=== PATIENT | female | born 1985 | race Caucasian/White ===

== ENCOUNTER → 2016-11-19 | Outpatient (CLI) | payer OTHER ==
[~2016-11-19] MED LIST: /ONDA4TA OR; ACET500C OR; ADVI200T26 PO; ALKATAB PO; AMRI15CA PO; BACL10TA2 OR; BACL10TA2 PO; GABA-283 PO; IBUP200T2 PO; IBUP800T OR; LEVO112T PO; LEVO50TA5 PO; LEVO75TA4 PO; META800T82 PO; MULTIVIT OR; OMEP40CA2 PO; ROBA750T4 PO; TIZA4CAP PO; VALI2TAB PO; VOLT1GEL2 TD; [UNRECOGNIZED DRUG - OTHER] OR; [UNRECOGNIZED DRUG - REMARK] PO; advil PO
--- NOTE | 2016-11-23 01:52 | ECWPNPC ---
PATIENT NAME: RICH NEGRON : 1985 GENDER: FEMALE VISIT DATE: 11/19/2016 DISCHARGE DATE: 11/19/16 1020 VISIT LOCKED DATE TIME: PHYSICIAN: IVETH URIAS RESOURCE: IVETH URIAS REASON FOR APPOINTMENT 1. BACK HISTORY OF PRESENT ILLNESS HISTORY OF PRESENT ILLNESS: PAIN THE PATIENT DESCRIBES THE PAIN... FALL RISK SCREENING: SCREENING :NO FALLS IN THE PAST YEAR TODAY'S VISIT: NOTES: RATES PAIN LEVEL TODAY 5/10. REPORTS PAIN IS CONSTANT, ACHING TENDER, THROBBONG AND SORE. PAIN IS CENTERED ACROSS LOSS BACK. IS ALSO HAVING PAIN IN RIGHT ELBBOW - HAS RECENTLY SEEN DR ROSE.HE DID INJECTIONS IN LOW BACK AND IN BACK OF NECK RIGHT SIDE. THIS HELPED ONLY FOR ABOUT AN OUR. . CURRENT MEDICATIONS TAKING LEVOTHYROXINE SODIUM 100 MCG TABLET 1 TABLET ORALLY ONCE A DAY TAKING MULTI FOR HER TABLET 1 ORALLY DAILY TAKING IBUPROFEN 800 MG TABLET 1 TABLET ORALLY NEEDED TAKING METHOCARBAMOL 750 MG TABLET 1 TABLET ORALLY EVERY 6 HRS TAKING CYMBALTA 30 MG CAPSULE DELAYED RELEASE PARTICLES 2 CAPSULE ORALLY DAILY TAKING NEXPLANON 68 MG IMPLANT DIRECTED SUBCUTANEOUS USE FOR THREE YEARS TAKING OMEPRAZOLE 40 MG CAPSULE DELAYED RELEASE 1 TABLET DAILY NOT-TAKING OMEPRAZOLE 20 MG TABLET DELAYED RELEASE 2 TABLETS ORALLY ONCE A DAY NEEDED NOT-TAKING FLUCONAZOLE 150 MG TABLET 1 TABLET ORALLY DAILY NOT-TAKING DIFLUCAN 150 MG TABLET 1 TABLET ORALLY ONCE A DAY MEDICATION LIST REVIEWED AND RECONCILED WITH THE PATIENT PAST MEDICAL HISTORY GERD HYPOTHYROID MORBID OBESITY BACK PAIN ALLERGIES AMOXICILLIN CODEINE PHOSPHATE SOCIAL HISTORY GENERAL: PAIN CLINIC PFS, CLERGY, PUBLIC HEALTH REFERRALS CLERGY REFERRAL NEEDED?NO WAS THE PROVIDER NOTIFIED OF ANY PERTINENT INFO?NO PFS REFERRAL NEEDED?NO PUBLIC HEALTH REFERRAL NEEDED?NO PATIENT: ____. REVIEW OF SYSTEMS CONSTITUTIONAL: ANY CHANGE IN YOUR MEDICAL CONDITION? NO . CHILLS NO . FEVER NO . INFECTION: DO YOU HAVE NEW INFECTIONS? NO . DO YOU HAVE HISTORY OF MRSA? NO . MUSCULOSKELETAL: ANY NEW PATTERNS OF PAIN OR NUMBNESS? YES PT REPORTS NEW PAIN IN RIGHT ELBOW, DOES NOT RECALL ANY INJURY. STARTED ABOUT A WEEK AGO. . GASTROENTEROLOGY: ANY NEW CHANGE IN BOWEL CONTROL? NO . GENITOURINARY: ANY NEW CHANGE IN BLADDER CONTROL? NO . IS THERE A CHANCE YOU COULD BE ? NO . HEMATOLOGY/LYMPH: DO YOU TAKE ANY BLOOD THINNERS? (FOR EXAMPLE- COUMADIN, PLAVIX, AGGRENOX, PLATEL, PRADAXA, OR XARELTO) NO . WHEN WAS YOUR LAST DOSE? DATE: TIME: . NEUROLOGY: HAVE YOU FALLEN IN THE PAST 6 MONTHS? YES PT REPORTS SHE SLIPPED ON ICE ON STEPS AND FELL, HIT LOWER BACK. NO ED VISIT. . ANY NEW EXTREMITY NUMBNESS OR WEAKNESS? NO . CARDIOLOGY: DO YOU HAVE A PACEMAKER OR DEFIBRILLATOR? NO . RESPIRATORY: HAVE YOU BEEN SICK IN THE PAST WEEK? YES PT REPORTS NASAL CONGESTION, COUGH PRODUCTIVE OF LOOSE MUCOUS. TEMP TODAY IS 99.3. REPORTS COUGH IS RESOLVING . FEVER NO . FLU LIKE SYMPTOMS? NO . COUGH NO . INTEGUMENTARY: DO YOU HAVE ANY RASHES OR OPEN SORES? NO . ALLERGIC/IMMUNO: ARE YOU ALLERGIC TO SHELLFISH OR IV DYE? NO . ANY NEW ALLERGIES? NO . PSYCHIATRIC: DO YOU HAVE THOUGHTS OF HURTING YOURSELF OR SOMEONE ELSE? NO . ARE YOU ABUSED, NEGLECTED, OR IN AN UNSAFE ENVIRONMENT? NO . ENDOCRINOLOGY: ARE YOU DIABETIC? NO . OTHER: DO YOU NEED ANY PRESCRIPTIONS? YES . IF YES, PLEASE LIST: ____METHOCARBAMOL, CYMBALTA, IBUPROFEN . ANY NEW PROBLEMS WITH YOUR MEDICATIONS? NO . WHEN DID YOU LAST EAT? ____ . WHEN DID YOU LAST DRINK? ____ . WHAT DID YOU LAST DRINK? ____ . NAME OF PERSON DRIVING YOU HOME? ____ . DO YOU HAVE ANY OTHER QUESTIONS OR CONCERNS NO . PSYCHOLOGY: DEPRESSION HAS RECENTLY STARTED COUNSELING IN THE [place]. . REVIEWED BY: PROVIDER: IVETH SMITH . VITAL SIGNS WT 264 LBS, HT 68 IN, BMI 40.14 INDEX, BP 120/74 MM HG, HR 74 /MIN, RR 18 /MIN, TEMP 99.3 F, OXYGEN SAT % 99%, SAFE IN ENV? (Y/N) YES, REVIEWED BY: USAMA. EXAMINATION GENERAL EXAMINATION: PSYCHALERT , ORIENTED X 3 , APPROPRIATE MOOD AND AFFECT . LUNGS:CLEAR TO AUSCULTATION BILATERALLY. HEART:HEART RATE REGULAR. MUSCULOSKELETAL:EXQUISITE TENDERNESS OVER LEFT SIJ. TENDER ACROSS LSA. ABLE TO RISE TO STANDING POSITION. GAIT ANTALGIC. HEAD HELD IN A HEAD FORWARD POSITION. ASSESSMENTS LUMBAR DISC DISPLACEMENT WITHOUT MYELOPATHY - M51.26 (PRIMARY) MYALGIA - M79.1 FIBROMYALGIA - M79.7 TREATMENT LUMBAR DISC DISPLACEMENT WITHOUT MYELOPATHY REFILL CYMBALTA CAPSULE DELAYED RELEASE PARTICLES, 30 MG, 2 CAPSULE, ORALLY, DAILY, 30 DAY(S), 60 CAPSULE, REFILLS 5 REFILL IBUPROFEN TABLET, 800 MG, 1 TABLET, ORALLY, Q 8 HOURS WITH FOOD, 30 DAY(S), 90, REFILLS 2 REFILL METHOCARBAMOL TABLET, 750 MG, 1 TABLET, ORALLY, EVERY 6 HRS, 30 DAY(S), 120, REFILLS 3 NOTES: CONTINUE COUNSELING. CONTINUE WALKING, ACTIVITY. PROCEDURE CODES FA211 ESTABILISHED PATIENT [facility] CHARGE DISPOSITION & COMMUNICATION FOLLOW UP 3 MONTHS ELECTRONICALLY SIGNED BY PEREZ LARKIN ON 11/19/2016 AT 10:35 AM EDT DISCLAIMER : THIS IS A VISIT SUMMARY EXTRACTED FROM THE [employer] CHART. IT IS NOT A COPY OF THE [employer] PROGRESS NOTE. MTDD
== END ==
LOC: M PAIN 09:40
PROVIDERS: ATTEND Nurse Practitioner Family
DX: Z09 Encounter for follow-up examination after completed treatment for conditions other than malignant neoplasm (principal); G89.29 Other chronic pain; M51.26 Other intervertebral disc displacement, lumbar region; M79.7 Fibromyalgia; K21.9 Gastro-esophageal reflux disease without esophagitis; E03.9 Hypothyroidism, unspecified; E66.9 Obesity, unspecified; Z68.41 Body mass index [BMI] 40.0-44.9, adult; Z88.1 Allergy status to other antibiotic agents; Z88.5 Allergy status to narcotic agent; Z79.1 Long term (current) use of non-steroidal anti-inflammatories (NSAID); Z79.899 Other long term (current) drug therapy

== ENCOUNTER → 2016-12-31 | Outpatient (CLI) | payer OTHER ==
--- NOTE | 2016-12-31 13:07 | REP ---
MRI LUMBAR SPINE WITHOUT CONTRAST: 12/31/2016 COMPARISON: 11/07/2015 MRI, 03/17/2015 CT, x-ray 12/27/2015. CLINICAL HISTORY: Spondylosis, back pain. TECHNIQUE: Sagittal T1, T2, and STIR images with axial T1 and T2 sequences. FINDINGS: Sagittal images show normal lordosis. There is loss of disc water signal at L3-4 through L5-S1. Disc space height slightly narrowed at L5-S1. Less narrowing at L3-4 and L4-5. The L2-3 level and L1-2 maintain height and water signal. Vertebral body heights and marrow signal are normal throughout. T11-12, T12-L1, L1-2, and L2-3 levels show no significant disc bulge or herniation and no spinal or foraminal stenosis. At L3-4, there is a mild diffuse disc bulge without visible protrusion. Central canal shows adequate cross-sectional area with the AP canal diameter just under 10 mm. There is no nerve root compression for the L3 roots in the foramen on either side. At L4-5, there is a mild broad-based disc bulge flattening ventral thecal sac with some facet and ligamentum hypertrophy. The L4 nerve roots exit the foramina in a normal fashion. At L5-S1, minimal disc bulge with small central disc protrusion without significant spinal or foraminal stenosis. Some facet hypertrophy noted. IMPRESSION: 1. Multilevel degenerative disc change with small disc bulge at L4-5 and L5-S1, less at L3-4. No significant central canal stenosis or foraminal encroachment either side. No nerve root compression within the foramina. 2. No compression deformity or signal abnormality in the vertebral bodies. Signed by Jarek Goldman MD 12/31/2016 01:38 P
== END ==
LOC: M RAD 11:04
PROVIDERS: ATTEND Neurological Surgery
DX: M54.5 Low back pain (principal)

== ENCOUNTER → 2017-02-12 | Outpatient (CLI) | payer OTHER ==
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
== END ==
LOC: M PAIN 10:00
PROVIDERS: ATTEND Nurse Practitioner Family
DX: G89.29 Other chronic pain (principal); M51.26 Other intervertebral disc displacement, lumbar region; M79.7 Fibromyalgia; R51 Headache; K21.9 Gastro-esophageal reflux disease without esophagitis; E03.9 Hypothyroidism, unspecified; E66.9 Obesity, unspecified; Z68.41 Body mass index [BMI] 40.0-44.9, adult; Z79.1 Long term (current) use of non-steroidal anti-inflammatories (NSAID); Z79.899 Other long term (current) drug therapy

== ENCOUNTER → 2017-04-04 | Outpatient (CLI) | payer OTHER ==
--- NOTE | 2017-04-04 13:37 | REP ---
MRI brain without contrast: History: Headaches. . Comparison study: Comparison brain MRI study is from February 16, 2010. Technique: Axial and sagittal imaging planes are utilized for T1 and T2-weighted scans. Sequences include spin-echo, fast spin echo, FLAIR, and diffusion weighted sequences. MRI findings: No bony calvarial lesion is seen. Craniocervical junction and upper cervical cord are normal in appearance. There is no MR evidence of significant paranasal sinus disease. No intraorbital abnormality is seen. The lateral, third, and fourth ventricles are normal in size and position. Martinez-white differentiation pattern is intact above and below the tentorium. There is no evidence of intracranial hemorrhage. No mass, infarction, extra-axial fluid collection or midline shift is seen. No abnormal white matter lesion is seen. Impression: Negative noncontrast brain MRI study. Signed by Sreedhar López MD 04/04/2017 01:29 P
== END ==
LOC: M RAD 11:16
PROVIDERS: ATTEND Nurse Practitioner Family
DX: R51 Headache (principal)
CPT/HCPCS: 70553; A9576

== ENCOUNTER → 2017-05-01 | Outpatient (CLI) | payer OTHER ==
--- NOTE | 2017-05-02 00:08 | ECWPNPC ---
PATIENT NAME: RICH NEGRON : 1985 GENDER: FEMALE VISIT DATE: 05/01/2017 DISCHARGE DATE: 05/01/17 1011 VISIT LOCKED DATE TIME: PHYSICIAN: IVETH URIAS RESOURCE: IVETH URIAS REASON FOR APPOINTMENT 1. BACK HISTORY OF PRESENT ILLNESS FALL RISK SCREENING: SCREENING :NO FALLS IN THE PAST YEAR PAIN SCREENING: PATIENT HAS A COMPLAINT OF ACUTE OR CHRONIC PAIN :YES TODAY'S VISIT: NOTES: RATES PAIN TODAY 01/26. RATES PAIN TODAY CONSTANT, ACHING AND SORE. HAS JUST STARTED WORK AT THE GYM. HAD LIGHT HEADEDNESS, FELT LIKE WAS WOBBLY. NOTES PARTICULAR PROBLEM WITH LIGHTHEADNESS WITH TURNING HER HEAD. REALLY LIKED THE MASSAGE CHAIR. IS STILL HAVING LEFT SIDED HEADACHE - IS INTERMITTANT BUT AT LEAST 3 TIMES A WEEK.. CURRENT MEDICATIONS TAKING LEVOTHYROXINE SODIUM 125 MCG TABLET 1 TABLET ORALLY ONCE A DAY TAKING MULTI FOR HER TABLET 1 ORALLY DAILY TAKING NEXPLANON 68 MG IMPLANT DIRECTED SUBCUTANEOUS USE FOR THREE YEARS TAKING OMEPRAZOLE 40 MG CAPSULE DELAYED RELEASE 1 TABLET DAILY TAKING IBUPROFEN 800 MG TABLET 1 TABLET ORALLY Q 8 HOURS WITH FOOD TAKING METHOCARBAMOL 750 MG TABLET 1 TABLET ORALLY EVERY 6 HRS TAKING VENLAFAXINE HCL ER 75 MG CAPSULE EXTENDED RELEASE 24 HOUR 1 CAPSULE WITH FOOD ORALLY ONCE A DAY NOT-TAKING CYMBALTA 30 MG CAPSULE DELAYED RELEASE PARTICLES 2 CAPSULE ORALLY DAILY NOT-TAKING TOPAMAX 50 MG TABLET 1 TABLET ORALLY TWICE A DAY NOT-TAKING OMEPRAZOLE 20 MG TABLET DELAYED RELEASE 2 TABLETS ORALLY ONCE A DAY NEEDED NOT-TAKING FLUCONAZOLE 150 MG TABLET 1 TABLET ORALLY DAILY NOT-TAKING DIFLUCAN 150 MG TABLET 1 TABLET ORALLY ONCE A DAY MEDICATION LIST REVIEWED AND RECONCILED WITH THE PATIENT PAST MEDICAL HISTORY GERD HYPOTHYROID MORBID OBESITY BACK PAIN ALLERGIES AMOXICILLIN: HIVES: ALLERGY CODEINE PHOSPHATE: NAUSEA/VOMITING: SIDE EFFECTS CLONAZEPAM: HIVES: SIDE EFFECTS AMITRIPTYLINE HCL: NAUSEA/VOMITING: SIDE EFFECTS BUPROPION HCL: NAUSEA/VOMITING: SIDE EFFECTS SURGICAL HISTORY NO SURGICAL HISTORY DOCUMENTED. FAMILY HISTORY FATHER: ALIVE 51 YRS MOTHER: ALIVE 50 YRS NON-CONTRIBUTORY SOCIAL HISTORY GENERAL: TOBACCO USE ARE YOU A:NONSMOKER CAFFEINE CAFFEINE USE?YES HOW OFTEN AND HOW MUCH? 2 CUPS PER DAY LEARNING BARRIERS / SPECIAL NEEDS BARRIERS TO LEARNING?NO READINESS TO LEARN?YES LEARNING PREFERENCES?NO PAIN CLINIC PFS, CLERGY, PUBLIC HEALTH REFERRALS PFS REFERRAL NEEDED?NO CLERGY REFERRAL NEEDED?NO PUBLIC HEALTH REFERRAL NEEDED?NO WAS THE PROVIDER NOTIFIED OF ANY PERTINENT INFO?YES HAS THE PATIENT BEEN EDUCATED REGARDING HIS/HER PLAN OF CARE?YES HAS THE PATIENT BEEN EDUCATED REGARDING PAIN, THE RISK FOR PAIN, THE IMPORTANCE OF EFFECTIVE PAIN MANAGEMENT, AND THE PAIN ASSESSMENT PROCESS?YES REVIEWED BY: JULIANNE. PATIENT: ____. HOSPITALIZATION/MAJOR DIAGNOSTIC PROCEDURE NO HOSPITALIZATION HISTORY. REVIEW OF SYSTEMS REVIEWED BY: PROVIDER: IVETH SMITH . CONSTITUTIONAL: ANY CHANGE IN YOUR MEDICAL CONDITION? NO . CHILLS NO . FEVER NO . INFECTION: DO YOU HAVE NEW INFECTIONS? NO . DO YOU HAVE HISTORY OF MRSA? NO . MUSCULOSKELETAL: ANY NEW PATTERNS OF PAIN OR NUMBNESS? YES, PT STATES THAT SHE HAS A CHOKING SENSATION IN THROAT INTERMITTENTLY, PT STATES THAT SHE IS HAVING ISSUES WITH THYROID AND GOING THROUGH EVALUATIONS WITH PCP. . SYTEMIC LUPUS NO . GASTROENTEROLOGY: ANY NEW CHANGE IN BOWEL CONTROL? NO . BARRETTS ESOPHAGUS NO . CIRRHOSIS NO . HEPATITIS NO . LIVER FAILURE NO . ACID REFLUX NO . UNEXPLAINED WEIGHT LOSS NO . GENITOURINARY: ANY NEW CHANGE IN BLADDER CONTROL? NO . IS THERE A CHANCE YOU COULD BE ? NO . HEMATOLOGY/LYMPH: DO YOU TAKE ANY BLOOD THINNERS? (FOR EXAMPLE- COUMADIN, PLAVIX, AGGRENOX, PLATEL, PRADAXA, OR XARELTO) NO . WHEN WAS YOUR LAST DOSE? DATE: TIME: . LOW PLATELET COUNT NO . SICKLE CELL DISEASE NO . VON WILLIEBRANDS NO . FACTOR V LEIDEN NO . THALLASEMIA NO . ANEMIA NO . EASY BRUISING NO . NEUROLOGY: MYAASTHENIA GRAVIS NO . BALANCE DIFFICULTY WITH OCCASIONAL LIGHTHEADEDNESS. . MEMORY DISTURBANCE FREQ MEMORY LAPSES, DISORIENTATION . CARDIOLOGY: DO YOU HAVE A PACEMAKER OR DEFIBRILLATOR? NO . ANGINA NO . HEART ATTACK NO . HEART SURGERY NO . CONGESTIVE HEART FAILURE/FLUID OVERLOAD NO . CHEST PAIN NO . HIGH BLOOD PRESSURE NO . IRREGULAR HEART BEAT NO . RESPIRATORY: HAVE YOU BEEN SICK IN THE PAST WEEK? NO . FEVER NO . FLU LIKE SYMPTOMS? NO . CPAP NO . BYPAP NO . ASTHMA NO . EMPHYSEMA NO . CHRONIC LUNG DISEASES NO . SHORTNESS OF BREATH ON EXERTION NO . COUGH NO . SNORING NO . INTEGUMENTARY: DO YOU HAVE ANY RASHES OR OPEN SORES? NO . ALLERGIC/IMMUNO: ARE YOU ALLERGIC TO SHELLFISH OR IV DYE? NO . ANY NEW ALLERGIES? NO . PSYCHIATRIC: DO YOU HAVE THOUGHTS OF HURTING YOURSELF OR SOMEONE ELSE? NO . ARE YOU ABUSED, NEGLECTED, OR IN AN UNSAFE ENVIRONMENT? NO . ENDOCRINOLOGY: ARE YOU DIABETIC? NO . THYROID DISORDER NO . OTHER: DO YOU NEED ANY PRESCRIPTIONS? YES, PT STATES THAT SHE WOULD LIKE SOMETHING DIFFERENT FOR PAIN CONTROL . IF YES, PLEASE LIST: ____ . ANY NEW PROBLEMS WITH YOUR MEDICATIONS? NO . WHEN DID YOU LAST EAT? ____ . WHEN DID YOU LAST DRINK? ____ . WHAT DID YOU LAST DRINK? ____ . NAME OF PERSON DRIVING YOU HOME? ____ . PSYCHOLOGY: ARE YOU RECEIVING COUNSELING? CURRENTLY IN COUNSELING AND IS RECEIVING MEDICATION . VITAL SIGNS WT 271.2 LBS, HT 68 IN, BMI 41.23 INDEX, BP 135/73 MM HG, HR 81 /MIN, RR 16 /MIN, TEMP 97.5 F, OXYGEN SAT % 100%, NA INITIALS AW 0913. EXAMINATION GENERAL EXAMINATION: HEENT:BILATERAL THYROMEGLY. LUNGS:CLEAR TO AUSCULTATION BILATERALLY. HEART:HEART RATE REGULAR, NORMAL S1S2, NO MURMURS, CLICK OR RUBS. MUSCULOSKELETAL:POINT TENDERNESS OVER RIGHT SIJ. SLOW TO RISE TO STANDING POSITION. HAS DIFFICULTY RISING TO FULL UPRIGHT POSITION. NECK ROTATION TO LEFT CAUSES TIGHTNESS OVER LEFT ANABAPTISM, TRIGGER POINTS AND TIGHT FIBROUS BANDS OVER CERVICAL PARASPINOUS MUSCLES AND ACROSS THE TRAPEZIUS BILATERALLY. GAIT ANTALGIC WITH RIGHT LEG LIMP. NEUROLOGIC EXAM:CN'S II-XII GROSSLY INTACT. 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 CONTINUE WITH EVAL FOR THYROID DYSFUNCTION. CLINICAL NOTES: DISCUSSED OPTIONS FOR TREATMENT. INTERVENTIONAL TREATMENT S HAVE NOT BEEN VERY EFFECTIVE AND HAVE CAUSED INCREASED PAIN. SHE IS VERY CONCERNED ABOUT THE NUMBNESS IN HER LEGS, THE BALANCE ISSUES AND FALLS, MEMORY ISSUES AND FATIGUE. SHE DOES NOT TOLERATE MEDICATIONS A RULE AND DOESN OT WANT PAIN MEDICATIONS THEY MAKE HER SO SLEEPY SHE CAN NOT FUNCTION. SHE PREFERS IBUPROFEN AND IS CAREFUL WITH HER INTAKE OF THIS MED. REFERRAL TO:[facility] REASON:PLEASE EVAL FOR MS /DEMYLINATING ILLNESS. HAS PARESTHESIA/DYSESTHESIA, EXTREME DIFF WITH BALANCE, FREQ HEADACHES/FREQ URINATION PROCEDURE CODES FA211 ESTABILISHED PATIENT [facility] FACILITY CHARGE DISPOSITION & COMMUNICATION FOLLOW UP 2-3 MONTHS (REASON: BACK PAIN) ELECTRONICALLY SIGNED BY PEREZ LARKIN ON 05/01/2017 AT 11:09 AM EDT DISCLAIMER : THIS IS A VISIT SUMMARY EXTRACTED FROM THE [email or web address] CHART. IT IS NOT A COPY OF THE [email or web address] PROGRESS NOTE. MTDD
== END ==
LOC: M PAIN 09:15
PROVIDERS: ATTEND Nurse Practitioner Family
DX: M51.26 Other intervertebral disc displacement, lumbar region (principal); M79.1 Myalgia; R51 Headache; E03.9 Hypothyroidism, unspecified; K21.9 Gastro-esophageal reflux disease without esophagitis; Z79.899 Other long term (current) drug therapy; Z88.0 Allergy status to penicillin; Z88.5 Allergy status to narcotic agent; Z88.8 Allergy status to other drugs, medicaments and biological substances

== ENCOUNTER → 2017-07-15 | Outpatient (CLI) | payer OTHER ==
--- NOTE | 2017-08-01 01:39 | ECWPNPC ---
PATIENT NAME: RICH NEGRON : 1985 GENDER: FEMALE VISIT DATE: 07/15/2017 DISCHARGE DATE: 07/15/17 1048 VISIT LOCKED DATE TIME: PHYSICIAN: IVETH URIAS RESOURCE: IVETH URIAS REASON FOR APPOINTMENT 1. BACK HISTORY OF PRESENT ILLNESS HISTORY OF PRESENT ILLNESS: PAIN THE PATIENT DESCRIBES THE PAIN... FALL RISK SCREENING: SCREENING :NO FALLS IN THE PAST YEAR TODAY'S VISIT: NOTES: RATES PAIN PAIN TODAY 10. IS NOTING PAIN IN JOINTS OF ELBOWS AND KNEES. BACK PAIN IS SEEMING TO BE OVER A LARGER AREA. HAS BEEN ABLE TO GET SOME SLEEP. IS USING IBUPROFEN BUT THIS AGGREVATED THE PAIN. CURRENT MEDICATIONS TAKING LEVOTHYROXINE SODIUM 125 MCG TABLET 1 TABLET ORALLY ONCE A DAY TAKING MULTI FOR HER TABLET 1 ORALLY DAILY TAKING NEXPLANON 68 MG IMPLANT DIRECTED SUBCUTANEOUS USE FOR THREE YEARS TAKING OMEPRAZOLE 40 MG CAPSULE DELAYED RELEASE 1 TABLET DAILY TAKING IBUPROFEN 800 MG TABLET 1 TABLET ORALLY Q 8 HOURS WITH FOOD TAKING METHOCARBAMOL 750 MG TABLET 1 TABLET ORALLY EVERY 6 HRS TAKING VENLAFAXINE HCL ER 75 MG CAPSULE EXTENDED RELEASE 24 HOUR 1 CAPSULE WITH FOOD ORALLY ONCE A DAY NOT-TAKING CYMBALTA 30 MG CAPSULE DELAYED RELEASE PARTICLES 2 CAPSULE ORALLY DAILY NOT-TAKING TOPAMAX 50 MG TABLET 1 TABLET ORALLY TWICE A DAY NOT-TAKING OMEPRAZOLE 20 MG TABLET DELAYED RELEASE 2 TABLETS ORALLY ONCE A DAY NEEDED NOT-TAKING FLUCONAZOLE 150 MG TABLET 1 TABLET ORALLY DAILY NOT-TAKING DIFLUCAN 150 MG TABLET 1 TABLET ORALLY ONCE A DAY MEDICATION LIST REVIEWED AND RECONCILED WITH THE PATIENT PAST MEDICAL HISTORY GERD HYPOTHYROID MORBID OBESITY BACK PAIN ALLERGIES AMOXICILLIN: HIVES: ALLERGY CODEINE PHOSPHATE: NAUSEA/VOMITING: SIDE EFFECTS CLONAZEPAM: HIVES: SIDE EFFECTS AMITRIPTYLINE HCL: NAUSEA/VOMITING: SIDE EFFECTS BUPROPION HCL: NAUSEA/VOMITING: SIDE EFFECTS SOCIAL HISTORY GENERAL: TOBACCO USE ARE YOU A:NONSMOKER CAFFEINE CAFFEINE USE?YES HOW OFTEN AND HOW MUCH? 2 CUPS PER DAY LEARNING BARRIERS / SPECIAL NEEDS BARRIERS TO LEARNING?NO READINESS TO LEARN?YES LEARNING PREFERENCES?NO PAIN CLINIC PFS, CLERGY, PUBLIC HEALTH REFERRALS PFS REFERRAL NEEDED?NO CLERGY REFERRAL NEEDED?NO PUBLIC HEALTH REFERRAL NEEDED?NO WAS THE PROVIDER NOTIFIED OF ANY PERTINENT INFO?YES HAS THE PATIENT BEEN EDUCATED REGARDING HIS/HER PLAN OF CARE?YES HAS THE PATIENT BEEN EDUCATED REGARDING PAIN, THE RISK FOR PAIN, THE IMPORTANCE OF EFFECTIVE PAIN MANAGEMENT, AND THE PAIN ASSESSMENT PROCESS?YES REVIEWED BY: JULIANNE. PATIENT: ____. REVIEW OF SYSTEMS REVIEWED BY: PROVIDER: . CONSTITUTIONAL: ANY CHANGE IN YOUR MEDICAL CONDITION? NO . CHILLS NO . FEVER NO . INFECTION: DO YOU HAVE NEW INFECTIONS? NO . DO YOU HAVE HISTORY OF MRSA? NO . MUSCULOSKELETAL: ANY NEW PATTERNS OF PAIN OR NUMBNESS? YES, LEFT KNEE . GASTROENTEROLOGY: ANY NEW CHANGE IN BOWEL CONTROL? NO . GENITOURINARY: ANY NEW CHANGE IN BLADDER CONTROL? NO . IS THERE A CHANCE YOU COULD BE ? NO . HEMATOLOGY/LYMPH: DO YOU TAKE ANY BLOOD THINNERS? (FOR EXAMPLE- COUMADIN, PLAVIX, AGGRENOX, PLATEL, PRADAXA, OR XARELTO) NO . WHEN WAS YOUR LAST DOSE? DATE: TIME: . NEUROLOGY: HAVE YOU FALLEN IN THE PAST 6 MONTHS? YES, FEW MONTHS AGO . ANY NEW EXTREMITY NUMBNESS OR WEAKNESS? NO . CARDIOLOGY: DO YOU HAVE A PACEMAKER OR DEFIBRILLATOR? NO . RESPIRATORY: HAVE YOU BEEN SICK IN THE PAST WEEK? NO . FEVER NO . FLU LIKE SYMPTOMS? NO . COUGH NO . INTEGUMENTARY: DO YOU HAVE ANY RASHES OR OPEN SORES? NO . ALLERGIC/IMMUNO: ARE YOU ALLERGIC TO SHELLFISH OR IV DYE? NO . ANY NEW ALLERGIES? NO . PSYCHIATRIC: DO YOU HAVE THOUGHTS OF HURTING YOURSELF OR SOMEONE ELSE? NO . ARE YOU ABUSED, NEGLECTED, OR IN AN UNSAFE ENVIRONMENT? NO . ENDOCRINOLOGY: ARE YOU DIABETIC? NO . OTHER: DO YOU NEED ANY PRESCRIPTIONS? YES . IF YES, PLEASE LIST: NEEDS SOMETHING FOR THE PAIN . ANY NEW PROBLEMS WITH YOUR MEDICATIONS? NO . WHEN DID YOU LAST EAT? ____ . WHEN DID YOU LAST DRINK? ____ . WHAT DID YOU LAST DRINK? ____ . NAME OF PERSON DRIVING YOU HOME? ____ . DO YOU HAVE ANY OTHER QUESTIONS OR CONCERNS NO . VITAL SIGNS WT 276.4 LBS, HT 68 IN, BMI 42.02 INDEX, BP 1341/69 MM HG, HR 67 /MIN, RR 16 /MIN, TEMP 97.8 F, OXYGEN SAT % 100%, NA INITIALS SC 10:14, REVIEWED BY: NL. EXAMINATION GENERAL EXAMINATION: HEENT:BILATERAL THYROMEGLY. LUNGS:CLEAR TO AUSCULTATION BILATERALLY. HEART:HEART RATE REGULAR, NORMAL S1S2, NO MURMURS, CLICK OR RUBS. MUSCULOSKELETAL:POINT TENDERNESS OVER RIGHT SIJ. SLOW TO RISE TO STANDING POSITION. HAS DIFFICULTY RISING TO FULL UPRIGHT POSITION. NECK ROTATION TO LEFT CAUSES TIGHTNESS OVER LEFT RELIGIOUS, TRIGGER POINTS AND TIGHT FIBROUS BANDS OVER CERVICAL PARASPINOUS MUSCLES AND ACROSS THE TRAPEZIUS BILATERALLY. GAIT ANTALGIC WITH RIGHT LEG LIMP. NEUROLOGIC EXAM:CN'S II-XII GROSSLY INTACT. ASSESSMENTS LUMBAR DISC DISPLACEMENT WITHOUT MYELOPATHY - M51.26 (PRIMARY) MYALGIA - M79.1 FIBROMYALGIA - M79.7 TREATMENT LUMBAR DISC DISPLACEMENT WITHOUT MYELOPATHY REFILL TOPAMAX TABLET, 50 MG, 1 TABLET, ORALLY, TWICE A DAY, 30 DAY(S), 60, REFILLS 1 PROCEDURE CODES FA211 ESTABILISHED PATIENT [facility] CHARGE DISPOSITION & COMMUNICATION FOLLOW UP 2 MONTHS (REASON: BACK PAIN) ELECTRONICALLY SIGNED BY PEREZ LARKIN ON 07/31/2017 AT 09:31 AM EST DISCLAIMER : THIS IS A VISIT SUMMARY EXTRACTED FROM THE [employer] CHART. IT IS NOT A COPY OF THE [employer] PROGRESS NOTE. ADOLFO
== END ==
LOC: M PAIN 09:45
PROVIDERS: ATTEND Nurse Practitioner Family
DX: M51.26 Other intervertebral disc displacement, lumbar region (principal); M79.1 Myalgia; E03.9 Hypothyroidism, unspecified; K21.9 Gastro-esophageal reflux disease without esophagitis; Z79.899 Other long term (current) drug therapy; Z88.1 Allergy status to other antibiotic agents; Z88.5 Allergy status to narcotic agent; Z88.8 Allergy status to other drugs, medicaments and biological substances

== ENCOUNTER → 2017-08-26 | Outpatient (CLI) | payer OTHER | LOC: M RAD 09:28 | DX: M22.42 Chondromalacia patellae, left knee (principal) | CPT/HCPCS: 73721 ==

== ENCOUNTER → 2017-10-04 | Outpatient (CLI) | payer OTHER | LOC: M PAIN 11:00 | DX: M51.26 Other intervertebral disc displacement, lumbar region (principal); M79.7 Fibromyalgia; E03.9 Hypothyroidism, unspecified; K21.9 Gastro-esophageal reflux disease without esophagitis; Z79.899 Other long term (current) drug therapy; Z88.0 Allergy status to penicillin; Z88.8 Allergy status to other drugs, medicaments and biological substances | CPT/HCPCS: G0463 ==

== ENCOUNTER → 2017-12-03 | Outpatient (CLI) | payer OTHER | LOC: M PAIN 09:00 | DX: M51.26 Other intervertebral disc displacement, lumbar region (principal); M79.7 Fibromyalgia; K21.9 Gastro-esophageal reflux disease without esophagitis; E03.9 Hypothyroidism, unspecified; E66.01 Morbid (severe) obesity due to excess calories; Z68.41 Body mass index [BMI] 40.0-44.9, adult; Z79.899 Other long term (current) drug therapy; Z88.1 Allergy status to other antibiotic agents; Z88.5 Allergy status to narcotic agent; Z88.8 Allergy status to other drugs, medicaments and biological substances | CPT/HCPCS: G0463 ==

== ENCOUNTER → 2018-02-03 | Outpatient (CLI) | payer OTHER | LOC: M PAIN 09:00 | DX: M51.26 Other intervertebral disc displacement, lumbar region (principal); M79.7 Fibromyalgia; K21.9 Gastro-esophageal reflux disease without esophagitis; E03.9 Hypothyroidism, unspecified; E66.01 Morbid (severe) obesity due to excess calories; Z68.41 Body mass index [BMI] 40.0-44.9, adult; Z79.899 Other long term (current) drug therapy; Z88.1 Allergy status to other antibiotic agents; Z88.5 Allergy status to narcotic agent; Z88.8 Allergy status to other drugs, medicaments and biological substances | CPT/HCPCS: G0463 ==

== ENCOUNTER → 2018-04-24 | Outpatient (CLI) | payer OTHER | LOC: M PAIN 09:00 | DX: M51.26 Other intervertebral disc displacement, lumbar region (principal); M79.1 Myalgia; E03.9 Hypothyroidism, unspecified; E66.01 Morbid (severe) obesity due to excess calories; Z68.41 Body mass index [BMI] 40.0-44.9, adult; Z79.899 Other long term (current) drug therapy; Z88.1 Allergy status to other antibiotic agents; Z88.5 Allergy status to narcotic agent; Z88.8 Allergy status to other drugs, medicaments and biological substances | CPT/HCPCS: G0463 ==

== ENCOUNTER → 2018-07-02 | Outpatient (REF) | payer OTHER ==
[2018-07-05 10:12] LABS: HPV HYBRID CAPTURE II Negative (Negative)
== END ==
LOC: M SFHCWAGY 10:57
DX: Z12.4 Encounter for screening for malignant neoplasm of cervix (principal)

== ENCOUNTER → 2018-12-16 | Outpatient (CLI) | payer OTHER ==
[~2018-12-16] MED LIST changes: -/ONDA4TA OR; -GABA-283 PO; +GABA-845 PO; +ONDA-1 OR
--- NOTE | 2019-01-01 00:37 | ECWPNPC ---
PATIENT NAME: RICH NEGRON : 1985 GENDER: FEMALE VISIT DATE: 12/16/2018 DISCHARGE DATE: 12/16/18 1521 VISIT LOCKED DATE TIME: PHYSICIAN: ESTRADA VALENTIN RESOURCE: ESTRADA VALENTIN REASON FOR APPOINTMENT 1. SW BACK PAIN HISTORY OF PRESENT ILLNESS HISTORY OF PRESENT ILLNESS: HERE FOR F/U OF CHRONIC GENERALIZED BACK PAIN.RATING PAIN VAS 5/10.USING IBUPROFEN 800MG PRN AND OVER THE PAST MONTH HAS BEEN USING A CBD/MULTIVIT PRN THAT HAS BEEN HELPFUL.DISCUSSED MEDICATION AND TREATMENT OPTIONS.HAS HAD POOR RESPONSE AND AGGREVATION IN PAIN AFTER INJECTIONS HERE AND DOES NOT WISH TO PURSUE INJECTIONS. PAIN THE PATIENT DESCRIBES THE PAIN... FALL RISK SCREENING: SCREENING :NO FALLS REPORTED IN THE LAST YEAR CURRENT MEDICATIONS TAKING LEVOTHYROXINE SODIUM 150 MCG TABLET 1 TABLET ORALLY ONCE A DAY TAKING MULTI FOR HER TABLET 1 ORALLY DAILY TAKING VITAMIN D3 86674 UNIT CAPSULE 1 CAPSULE ORALLY WEEKLY TAKING SALONPAS GEL TAKING MAY USE CBD OIL BEFORE BEDTIME NEEDED TAKING IBUPROFEN 800 MG TABLET 1 TABLET ORALLY Q 8 HOURS WITH FOOD TAKING NEXPLANON 68 MG IMPLANT DIRECTED SUBCUTANEOUS USE FOR THREE YEARS TAKING OMEPRAZOLE 20 MG TABLET DELAYED RELEASE 2 TABLETS ORALLY ONCE A DAY NEEDED NOT-TAKING VENLAFAXINE HCL ER 75 MG CAPSULE EXTENDED RELEASE 24 HOUR 1 CAPSULE WITH FOOD ORALLY BID NOT-TAKING TOPAMAX 100 MG TABLET 1 TABLET ORALLY AT NIGHT, NOTES: TAKES 1 TABLET AT NIGHT NOT-TAKING OMEPRAZOLE 40 MG CAPSULE DELAYED RELEASE 1 TABLET DAILY NOT-TAKING FLONASE 50 MCG/ACT SUSPENSION 1 SPRAY IN EACH NOSTRIL NASALLY ONCE A DAY NOT-TAKING CETIRIZINE HCL 10 MG TABLET 1 TABLET ORALLY ONCE A DAY NOT-TAKING SINGULAIR 10 MG TABLET 1 TABLET IN THE EVENING ORALLY ONCE A DAY NOT-TAKING METHOCARBAMOL 750 MG TABLET 1 TABLET ORALLY EVERY 6 HRS NOT-TAKING CYMBALTA 30 MG CAPSULE DELAYED RELEASE PARTICLES 2 CAPSULE ORALLY DAILY NOT-TAKING TIZANIDINE HCL 2 MG TABLET 1 TABLET NEEDED ORALLY THREE TIMES A DAY NOT-TAKING BUSPIRONE HCL 5 MG TABLET 1 TABLET ORALLY AT NIGHT MEDICATION LIST REVIEWED AND RECONCILED WITH THE PATIENT PAST MEDICAL HISTORY GERD HYPOTHYROID MORBID OBESITY BACK PAIN ALLERGIES AMOXICILLIN: HIVES - ALLERGY CODEINE PHOSPHATE: NAUSEA/VOMITING - SIDE EFFECTS CLONAZEPAM: HIVES - SIDE EFFECTS AMITRIPTYLINE HCL: NAUSEA/VOMITING - SIDE EFFECTS BUPROPION HCL: NAUSEA/VOMITING - SIDE EFFECTS SURGICAL HISTORY NO SURGICAL HISTORY DOCUMENTED. FAMILY HISTORY FATHER: ALIVE 51 YRS MOTHER: ALIVE 50 YRS PATERNAL GRAND FATHER: COLON CANCER, DIAGNOSED WITH CANCER SOCIAL HISTORY GENERAL: TOBACCO USE ARE YOU A:NONSMOKER HIV / HEP-C SCREENING HIV TEST OFFERED TO PATIENT:YES DATE OFFERED:07/02/2018 TEST ACCEPTED:NO REASON:PATIENT DECLINED BROCHURE PROVIDED TO PATIENTNO OTHERS AT HOME: SPOUSE, CHILDREN. DIET: CARBOHYDRATE CONTROLLED. LANGUAGE LANGUAGES SPOKEN:[place] BMI CARE GOAL FOLLOW-UP ABOVE NORMAL BMI FOLLOW-UPDIETARY NEEDS EDUCATION, WEIGHT MONITORING EXERCISE: GOES TO PHYSICAL THERAPY RECUMBANT BIKE, WALKS 1/2 MILE 3 TIMES A WEEK. LEARNING BARRIERS / SPECIAL NEEDS CHANGE FROM LAST VISIT?NO BARRIERS TO LEARNING?NO HEARING IMPAIRED?NO VISION IMPAIRED?NO COGNITIVELY IMPAIRED?NO READINESS TO LEARN?YES LEARNING PREFERENCES?NO LEARNING CAPABILITIES PRESENT?YES EMOTIONAL BARRIERS?NO SPECIAL DEVICES?NO PAIN CLINIC PFS, CLERGY, PUBLIC HEALTH REFERRALS PFS REFERRAL NEEDED?NO CLERGY REFERRAL NEEDED?NO PUBLIC HEALTH REFERRAL NEEDED?NO WAS THE PROVIDER NOTIFIED OF ANY PERTINENT INFO?YES HAS THE PATIENT BEEN EDUCATED REGARDING HIS/HER PLAN OF CARE?YES HAS THE PATIENT BEEN EDUCATED REGARDING PAIN, THE RISK FOR PAIN, THE IMPORTANCE OF EFFECTIVE PAIN MANAGEMENT, AND THE PAIN ASSESSMENT PROCESS?YES LATEX QUESTIONNAIRE LATEX ALLERGY : HAVE YOU EVER DEVELOPED ANY TYPE OF REACTION AFTER HANDLING LATEX PRODUCTS SUCH RUBBER GLOVES, CONDOMS, DIAPHRAGMS, BALLOONS, SOCKS, OR UNDERWEAR?NO LATEX ALLERGY : HAVE YOU EVER DEVELOPED ANY TYPE OF REACTION DURING OR AFTER DENTAL APPOINTMENT, VAGINAL/RECTAL EXAMINATION, SURGICAL PROCEDURE, OR ANY OTHER EXPOSURE?NO LATEX RISK : HAVE YOU EVER HAD ANY DIFFICULTY BREATHING OR HIVES AFTER EATING OR HANDLING ANY FRUITS, OR VEGETABLES; SUCH KIWI, BANANAS, STONE FRUITS, OR CHESTNUTSNO LATEX RISK : DO YOU HAVE A PREVIOUS PERSONAL HISTORY OF MORE THAN NINE SURGERIES, SPINA BIFIDA, OR REPEATED CATHERTIZATIONS? NO LATEX RISK : ARE YOU FREQUENTLY EXPOSED TO LATEX PRODUCTS IN YOUR OCCUPATION?NO DATE ASKED : 12/16/2018 CAFFEINE CAFFEINE USE?YES HOW OFTEN AND HOW MUCH? 2 CUPS PER DAY ADVANCE DIRECTIVE ADVANCE DIRECTIVE DISCUSSED WITH PATIENT:YES PT DOES NOT WANT INFO AT THIS TIME. DECLINES ASSISTANCE 12/16/18 CONFUCIANISM CONFUCIANISM NO CONFUCIANIST BELIEFS THAT WOULD IMPACT HEALTH CARE. MARITAL STATUS: . OCCUPATION: HOMEMAKER. SEXUAL HX HAD SEX IN THE LAST 12 MONTHS (VAGINAL, ORAL, OR ANAL)?YES WITHMEN ONLY USE PROTECTION?NO HAVE YOU EVER HAD AN STD?NO LMP:06/14/18 REVIEWED 02/03/18 0925 LASREVIEWED WITH PT 04-24-18 BVREVIEWED WITH PT 12/16/18 1451 BV. HOSPITALIZATION/MAJOR DIAGNOSTIC PROCEDURE NO HOSPITALIZATION HISTORY. REVIEW OF SYSTEMS REVIEWED BY: PROVIDER: ESTRADA SMITH . CONSTITUTIONAL: ANY CHANGE IN YOUR MEDICAL CONDITION? NO . CHILLS NO . FEVER NO . INFECTION: DO YOU HAVE NEW INFECTIONS? NO . DO YOU HAVE HISTORY OF MRSA? NO . MUSCULOSKELETAL: ANY NEW PATTERNS OF PAIN OR NUMBNESS? YES, PT STARTED WORK LAST MONTH AND HAS BEEN STANDING FOR MORE PROLONGED PERIODS. HAS NOTICED INCREASED BACK PAIN. . GASTROENTEROLOGY: ANY NEW CHANGE IN BOWEL CONTROL? NO . GENITOURINARY: ANY NEW CHANGE IN BLADDER CONTROL? NO . IS THERE A CHANCE YOU COULD BE ? NO . HEMATOLOGY/LYMPH: DO YOU TAKE ANY BLOOD THINNERS? (FOR EXAMPLE- COUMADIN, PLAVIX, AGGRENOX, PLATEL, PRADAXA, OR XARELTO) NO . WHEN WAS YOUR LAST DOSE? DATE: TIME: . NEUROLOGY: HAVE YOU FALLEN IN THE PAST 12 MONTHS? NO . ANY NEW EXTREMITY NUMBNESS OR WEAKNESS? NO . CARDIOLOGY: DO YOU HAVE A PACEMAKER OR DEFIBRILLATOR? NO . RESPIRATORY: HAVE YOU BEEN SICK IN THE PAST WEEK? NO . FEVER NO . FLU LIKE SYMPTOMS? NO . COUGH NO . INTEGUMENTARY: DO YOU HAVE ANY RASHES OR OPEN SORES? NO . ALLERGIC/IMMUNO: ARE YOU ALLERGIC TO IV DYE? NO . ANY NEW ALLERGIES? NO . PSYCHIATRIC: DO YOU HAVE THOUGHTS OF HURTING YOURSELF OR SOMEONE ELSE? NO . ARE YOU ABUSED, NEGLECTED, OR IN AN UNSAFE ENVIRONMENT? NO . ENDOCRINOLOGY: ARE YOU DIABETIC? NO . OTHER: DO YOU NEED ANY PRESCRIPTIONS? NO . IF YES, PLEASE LIST: ____ . ANY NEW PROBLEMS WITH YOUR MEDICATIONS? NO . WHEN DID YOU LAST EAT? ____ . WHEN DID YOU LAST DRINK? ____ . WHAT DID YOU LAST DRINK? ____ . NAME OF PERSON DRIVING YOU HOME? ____ . DO YOU HAVE ANY OTHER QUESTIONS OR CONCERNS NO . VITAL SIGNS WT 281.8 LBS, HT 68 IN, BMI 42.84 INDEX, BP 124/82 MM HG, HR 70 /MIN, RR 18 /MIN, TEMP 97.6 F, OXYGEN SAT % 100%, NA INITIALS SC 14:25, REVIEWED BY: BV. EXAMINATION GENERAL EXAMINATION: GENERAL APPEARANCE:AWAKE,ALERT ,PLEAASANT . PSYCHAFFECT NORMAL . LUNGS:LUNG ENGEL ARE CLEAR TO AUSCULTATION BILATERALLY. GOOD MOVEMENT OF AIR . HEART:S1, S2 IN A REGULAR RATE AND RHYTHM. NO SIGNIFICANT MURMURS, RUBS OR GALLOPS NOTED . ASSESSMENTS LUMBAR DISC DISPLACEMENT WITHOUT MYELOPATHY - M51.26 (PRIMARY) TREATMENT LUMBAR DISC DISPLACEMENT WITHOUT MYELOPATHY REFILL IBUPROFEN TABLET, 800 MG, 1 TABLET, ORALLY, Q 8 HOURS WITH FOOD, 30 DAY(S), 90, REFILLS 2 NOTES: PATIENT WAS ADVISED TO START A WALKING PROGRAM TO STRENGTHEN LUMBAR PARASPINAL MUSCLES AND IMPROVE MOBILITY. THEY WERE ADVISED THAT THIS WILL IMPROVE WEIGHT LOSS AND ALSO DEPRESSION/FIBROMYALGIA SYMPTOMS. ADVISED TO WALK 10 MINUTES EVERY OTHER DAY ON A FLAT SURFACE. EMPHASIZED THE IMPORTANCE OF DOING THIS CONSISTANTLY AND NOT SPORATICALLY TO AVOID INJURY. STRONG ADVISED NOT TO DO MORE THAN 10 MINUTES EVERY OTHER DAY FOR THE FIRST 4 WEEKS. PROCEDURE CODES FA211 ESTABILISHED PATIENT [facility] CHARGE DISPOSITION & COMMUNICATION FOLLOW UP 3 MONTHS ELECTRONICALLY SIGNED BY SARAH DODD ON 12/31/2018 AT 08:46 AM EDT DISCLAIMER : THIS IS A VISIT SUMMARY EXTRACTED FROM THE [employer] CHART. IT IS NOT A COPY OF THE [employer] PROGRESS NOTE. ADOLFO
== END ==
LOC: M PAIN 14:00
PROVIDERS: ATTEND Nurse Practitioner Family
DX: M51.26 Other intervertebral disc displacement, lumbar region (principal); G89.29 Other chronic pain; K21.9 Gastro-esophageal reflux disease without esophagitis; E03.9 Hypothyroidism, unspecified; Z88.1 Allergy status to other antibiotic agents; Z88.5 Allergy status to narcotic agent; Z88.8 Allergy status to other drugs, medicaments and biological substances; E66.01 Morbid (severe) obesity due to excess calories; Z68.41 Body mass index [BMI] 40.0-44.9, adult; Z79.1 Long term (current) use of non-steroidal anti-inflammatories (NSAID); Z79.899 Other long term (current) drug therapy

== ENCOUNTER → 2019-03-17 | Outpatient (CLI) | payer OTHER ==
--- NOTE | 2019-03-19 01:41 | ECWPNPC ---
PATIENT NAME: RICH NEGRON : 1985 GENDER: FEMALE VISIT DATE: 03/17/2019 DISCHARGE DATE: 03/17/19 1357 VISIT LOCKED DATE TIME: PHYSICIAN: IRVING TENORIO RESOURCE: IRVING TENORIO REASON FOR APPOINTMENT 1. BACK PAIN-IN LINE HISTORY OF PRESENT ILLNESS HISTORY OF PRESENT ILLNESS: PAIN THE PATIENT DESCRIBES THE PAIN... 33 YEAR OLD FEMALE IN FOR CHRONIC PAIN FOLLOW UP. SHE DOES ADMIT THE IBUPROFEN IS HELPING WITH HER PAIN AND RATES IT AT A 3/10 CURRENTLY. SHE STATES SHE HAD BLOOD WORK DONE WHICH INDICATED A DECREASE IN HER KIDNEY FUNCTIONS SO SHE HAS DECREASED HER USE OF IBUPROFEN. FALL RISK SCREENING: SCREENING :NO FALLS REPORTED IN THE LAST YEAR CURRENT MEDICATIONS TAKING LEVOTHYROXINE SODIUM 150 MCG TABLET 1 TABLET ORALLY ONCE A DAY TAKING MULTI FOR HER TABLET 1 ORALLY DAILY TAKING VITAMIN D3 72613 UNIT CAPSULE 1 CAPSULE ORALLY WEEKLY TAKING SALONPAS GEL TAKING OMEPRAZOLE 20 MG TABLET DELAYED RELEASE 2 TABLETS ORALLY ONCE A DAY NEEDED TAKING IBUPROFEN 800 MG TABLET 1 TABLET ORALLY Q 8 HOURS WITH FOOD TAKING NEXPLANON 68 MG IMPLANT DIRECTED SUBCUTANEOUS USE FOR THREE YEARS TAKING FLONASE 50 MCG/ACT SUSPENSION 1 SPRAY IN EACH NOSTRIL NASALLY ONCE A DAY TAKING CETIRIZINE HCL 10 MG TABLET 1 TABLET ORALLY ONCE A DAY NOT-TAKING MAY USE CBD OIL BEFORE BEDTIME NEEDED NOT-TAKING VENLAFAXINE HCL ER 75 MG CAPSULE EXTENDED RELEASE 24 HOUR 1 CAPSULE WITH FOOD ORALLY BID NOT-TAKING TOPAMAX 100 MG TABLET 1 TABLET ORALLY AT NIGHT, NOTES: TAKES 1 TABLET AT NIGHT NOT-TAKING OMEPRAZOLE 40 MG CAPSULE DELAYED RELEASE 1 TABLET DAILY NOT-TAKING SINGULAIR 10 MG TABLET 1 TABLET IN THE EVENING ORALLY ONCE A DAY NOT-TAKING METHOCARBAMOL 750 MG TABLET 1 TABLET ORALLY EVERY 6 HRS NOT-TAKING CYMBALTA 30 MG CAPSULE DELAYED RELEASE PARTICLES 2 CAPSULE ORALLY DAILY NOT-TAKING TIZANIDINE HCL 2 MG TABLET 1 TABLET NEEDED ORALLY THREE TIMES A DAY NOT-TAKING BUSPIRONE HCL 5 MG TABLET 1 TABLET ORALLY AT NIGHT MEDICATION LIST REVIEWED AND RECONCILED WITH THE PATIENT PAST MEDICAL HISTORY GERD HYPOTHYROID MORBID OBESITY BACK PAIN ALLERGIES AMOXICILLIN: HIVES - ALLERGY CODEINE PHOSPHATE: NAUSEA/VOMITING - SIDE EFFECTS CLONAZEPAM: HIVES - SIDE EFFECTS AMITRIPTYLINE HCL: NAUSEA/VOMITING - SIDE EFFECTS BUPROPION HCL: NAUSEA/VOMITING - SIDE EFFECTS SURGICAL HISTORY NO SURGICAL HISTORY DOCUMENTED. FAMILY HISTORY FATHER: ALIVE 51 YRS MOTHER: ALIVE 50 YRS PATERNAL GRAND FATHER: COLON CANCER, DIAGNOSED WITH CANCER SOCIAL HISTORY GENERAL: TOBACCO USE ARE YOU A:NONSMOKER HIV / HEP-C SCREENING HIV TEST OFFERED TO PATIENT:YES DATE OFFERED:07/02/2018 TEST ACCEPTED:NO REASON:PATIENT DECLINED BROCHURE PROVIDED TO PATIENTNO OTHERS AT HOME: SPOUSE, CHILDREN. DIET: CARBOHYDRATE CONTROLLED. LANGUAGE LANGUAGES SPOKEN:[place] BMI CARE GOAL FOLLOW-UP ABOVE NORMAL BMI FOLLOW-UPDIETARY NEEDS EDUCATION, WEIGHT MONITORING EXERCISE: GOES TO PHYSICAL THERAPY RECUMBANT BIKE, WALKS 1/2 MILE 3 TIMES A WEEK. LEARNING BARRIERS / SPECIAL NEEDS CHANGE FROM LAST VISIT?NO BARRIERS TO LEARNING?NO HEARING IMPAIRED?NO VISION IMPAIRED?NO COGNITIVELY IMPAIRED?NO READINESS TO LEARN?YES LEARNING PREFERENCES?NO LEARNING CAPABILITIES PRESENT?YES EMOTIONAL BARRIERS?NO SPECIAL DEVICES?NO PAIN CLINIC PFS, CLERGY, PUBLIC HEALTH REFERRALS PFS REFERRAL NEEDED?NO CLERGY REFERRAL NEEDED?NO PUBLIC HEALTH REFERRAL NEEDED?NO WAS THE PROVIDER NOTIFIED OF ANY PERTINENT INFO?YES HAS THE PATIENT BEEN EDUCATED REGARDING HIS/HER PLAN OF CARE?YES HAS THE PATIENT BEEN EDUCATED REGARDING PAIN, THE RISK FOR PAIN, THE IMPORTANCE OF EFFECTIVE PAIN MANAGEMENT, AND THE PAIN ASSESSMENT PROCESS?YES LATEX QUESTIONNAIRE LATEX ALLERGY : HAVE YOU EVER DEVELOPED ANY TYPE OF REACTION AFTER HANDLING LATEX PRODUCTS SUCH RUBBER GLOVES, CONDOMS, DIAPHRAGMS, BALLOONS, SOCKS, OR UNDERWEAR?NO LATEX ALLERGY : HAVE YOU EVER DEVELOPED ANY TYPE OF REACTION DURING OR AFTER DENTAL APPOINTMENT, VAGINAL/RECTAL EXAMINATION, SURGICAL PROCEDURE, OR ANY OTHER EXPOSURE?NO LATEX RISK : HAVE YOU EVER HAD ANY DIFFICULTY BREATHING OR HIVES AFTER EATING OR HANDLING ANY FRUITS, OR VEGETABLES; SUCH KIWI, BANANAS, STONE FRUITS, OR CHESTNUTSNO LATEX RISK : DO YOU HAVE A PREVIOUS PERSONAL HISTORY OF MORE THAN NINE SURGERIES, SPINA BIFIDA, OR REPEATED CATHERIZATIONS? NO LATEX RISK : ARE YOU FREQUENTLY EXPOSED TO LATEX PRODUCTS IN YOUR OCCUPATION?NO DATE ASKED : 12/16/2018 CAFFEINE CAFFEINE USE?YES HOW OFTEN AND HOW MUCH? 2 CUPS PER DAY ADVANCE DIRECTIVE ADVANCE DIRECTIVE DISCUSSED WITH PATIENT:YES PT DOES NOT WANT INFO AT THIS TIME. DECLINES ASSISTANCE 12/16/18 EVANGELICAL EVANGELICAL NO TENRIISM BELIEFS THAT WOULD IMPACT HEALTH CARE. MARITAL STATUS: . OCCUPATION: HOMEMAKER. SEXUAL HX HAD SEX IN THE LAST 12 MONTHS (VAGINAL, ORAL, OR ANAL)?YES WITHMEN ONLY USE PROTECTION?NO HAVE YOU EVER HAD AN STD?NO LMP:06/14/18 REVIEWED 02/03/18 0925 LASREVIEWED WITH PT 04-24-18 BVREVIEWED WITH PT 12/16/18 1451 BVREVIEWED WITH PT 03/17/19 1308 NLJ. HOSPITALIZATION/MAJOR DIAGNOSTIC PROCEDURE NO HOSPITALIZATION HISTORY. REVIEW OF SYSTEMS REVIEWED BY: PROVIDER: TYREE TODD . CONSTITUTIONAL: ANY CHANGE IN YOUR MEDICAL CONDITION? YES- PT STATES SHE RECENTLY HAD LAB TESTS DOEN THAT SHOWED " HIGH INNFLAMMATION THROUGHOUT BODY", SO SHE IS BEING REFFERED TO A PONDMAN . CHILLS NO . FEVER NO . INFECTION: DO YOU HAVE NEW INFECTIONS? NO . DO YOU HAVE HISTORY OF MRSA? NO . MUSCULOSKELETAL: ANY NEW PATTERNS OF PAIN OR NUMBNESS? NO . GASTROENTEROLOGY: ANY NEW CHANGE IN BOWEL CONTROL? NO . GENITOURINARY: ANY NEW CHANGE IN BLADDER CONTROL? NO . IS THERE A CHANCE YOU COULD BE ? NO . HEMATOLOGY/LYMPH: DO YOU TAKE ANY BLOOD THINNERS? (FOR EXAMPLE- COUMADIN, PLAVIX, AGGRENOX, PLATEL, PRADAXA, OR XARELTO) NO . WHEN WAS YOUR LAST DOSE? DATE: TIME: . NEUROLOGY: HAVE YOU FALLEN IN THE PAST 12 MONTHS? YES- FELL OFF A STOOL A COUPLE OF MONTHS AGO, STATES THE STOOL JUST "WENT OUT FROM UNDER HER", STATES NO INJURIES AND NO MEDICAL CARE RECEIVED . ANY NEW EXTREMITY NUMBNESS OR WEAKNESS? NO . CARDIOLOGY: DO YOU HAVE A PACEMAKER OR DEFIBRILLATOR? NO . RESPIRATORY: HAVE YOU BEEN SICK IN THE PAST WEEK? NO . FEVER NO . FLU LIKE SYMPTOMS? NO . COUGH NO . INTEGUMENTARY: DO YOU HAVE ANY RASHES OR OPEN SORES? NO . ALLERGIC/IMMUNO: ARE YOU ALLERGIC TO IV DYE? NO . ANY NEW ALLERGIES? NO . PSYCHIATRIC: DO YOU HAVE THOUGHTS OF HURTING YOURSELF OR SOMEONE ELSE? NO . ARE YOU ABUSED, NEGLECTED, OR IN AN UNSAFE ENVIRONMENT? NO . ENDOCRINOLOGY: ARE YOU DIABETIC? NO . OTHER: DO YOU NEED ANY PRESCRIPTIONS? YES- IBUPROFEN WAS WORKING TAKEN EVERY 8 HOURS,BUT STATES HER PCP HAD HER DECREASE HOW MUCH SHE TAKES IT DUE TO KIDNEY FUNCTION, WOULD LIKE TO SEE IF SHE CAN TAKE SOMETHING DIFFERENT . IF YES, PLEASE LIST: ____ . ANY NEW PROBLEMS WITH YOUR MEDICATIONS? NO . WHEN DID YOU LAST EAT? ____ . WHEN DID YOU LAST DRINK? ____ . WHAT DID YOU LAST DRINK? ____ . NAME OF PERSON DRIVING YOU HOME? ____ . DO YOU HAVE ANY OTHER QUESTIONS OR CONCERNS YES- STATES RECENT LAB WORK SHOWED KINDNEY FUNCTION ISSURES PER HER PCP, STATES PCP ASKED HER TO DECREASE HOW OFTEN SHE TAKE IBUPROFEN, PT WOULD LIKE TO SEE IF THERE IS ANY OTHER OPTIONS . VITAL SIGNS WT 274.8 LBS, HT 68 IN, BMI 41.78 INDEX, BP 132/83 MM HG, HR 76 /MIN, RR 18 /MIN, TEMP 97.8 F, OXYGEN SAT % 97%, NA INITIALS AW 1312. EXAMINATION GENERAL EXAMINATION: GENERALNO ACUTE DISTRESS, WELL NOURISHED AND HYDRATED. PSYCHAPPROPRIATE MOOD AND AFFECT . LUNGS:CLEAR TO AUSCULTATION BILATERALLY, NO WHEEZES, RHONCHI, RALES. HEART:NO MURMURS, REGULAR RATE AND RHYTHM. ASSESSMENTS LUMBAR DISC DISPLACEMENT WITHOUT MYELOPATHY - M51.26 (PRIMARY) TREATMENT LUMBAR DISC DISPLACEMENT WITHOUT MYELOPATHY CLINICAL NOTES: 33 YEAR OLD FEMALE IN FOR CHRONIC PAIN FOLLOW UP. GIVEN PRESENTING SYMPTOMS AND RESULTS OF PHYSICAL EXAMINATION RECOMMENDED CONTINUING WITH IBUPROFEN AT HER CURRENT DECREASED DOSE OF 1 TABLET A DAY GOING UP TO TWO A DAY ONLY IF NEEDED. PATIENT HAS EXPRESSED UNDERSTANDING OF AND WAS IN AGREEMENT WITH TREATMENT PLAN. GIVEN TIME TO ASK QUESTIONS AND EXPRESS CONCERNS. PROCEDURE CODES FA211 ESTABILISHED PATIENT [facility] CHARGE DISPOSITION & COMMUNICATION FOLLOW UP 3 MONTHS (REASON: CHRONIC PAIN ) ELECTRONICALLY SIGNED BY SARAH ADAMS ON 03/18/2019 AT 10:59 AM EDT DISCLAIMER : THIS IS A VISIT SUMMARY EXTRACTED FROM THE [employer] CHART. IT IS NOT A COPY OF THE [employer] PROGRESS NOTE. [place]
== END ==
LOC: M PAIN 13:00
PROVIDERS: ATTEND Family Medicine
DX: M51.26 Other intervertebral disc displacement, lumbar region (principal); K21.9 Gastro-esophageal reflux disease without esophagitis; E03.9 Hypothyroidism, unspecified; E66.01 Morbid (severe) obesity due to excess calories; Z68.41 Body mass index [BMI] 40.0-44.9, adult; Z79.1 Long term (current) use of non-steroidal anti-inflammatories (NSAID); Z79.899 Other long term (current) drug therapy; Z88.0 Allergy status to penicillin; Z88.5 Allergy status to narcotic agent; Z88.8 Allergy status to other drugs, medicaments and biological substances

== ENCOUNTER → 2019-06-17 | Outpatient (CLI) | payer OTHER ==
[~2019-06-17] MED LIST changes: -OMEP40CA2 PO; +OMEP40CA97 PO
--- NOTE | 2019-06-19 02:36 | ECWPNPC ---
PATIENT NAME: RICH NEGRON : 1985 GENDER: FEMALE VISIT DATE: 06/17/2019 DISCHARGE DATE: 06/17/19 1450 VISIT LOCKED DATE TIME: PHYSICIAN: IRVING TENORIO RESOURCE: IRVING TENORIO REASON FOR APPOINTMENT 1. CHRONIC PAIN HISTORY OF PRESENT ILLNESS HISTORY OF PRESENT ILLNESS: PAIN THE PATIENT DESCRIBES THE PAIN... 33-YEAR-OLD FEMALE IN FOR CHRONIC PAIN FOLLOW-UP. SHE RATES HER PAIN CURRENTLY AT A 4 OUT OF 10 AND DESCRIBES IT ACHING, SHARP, BURNING, STABBING, SORE, AND TENDER. SHE FURTHER STATES HER MEDICATIONS ARE WORKING WELL. FALL RISK SCREENING: SCREENING :NO FALLS REPORTED IN THE LAST YEAR CURRENT MEDICATIONS TAKING LEVOTHYROXINE SODIUM 175 MCG TABLET 1 TABLET ORALLY ONCE A DAY TAKING MULTI FOR HER TABLET 1 ORALLY DAILY TAKING VITAMIN D3 [id number] UNIT CAPSULE 1 CAPSULE ORALLY WEEKLY TAKING SALONPAS GEL TAKING IBUPROFEN 800 MG TABLET 1 TABLET ORALLY Q 8 HOURS WITH FOOD TAKING NEXPLANON 68 MG IMPLANT DIRECTED SUBCUTANEOUS USE FOR THREE YEARS NOT-TAKING OMEPRAZOLE 20 MG TABLET DELAYED RELEASE 2 TABLETS ORALLY ONCE A DAY NEEDED NOT-TAKING FLONASE 50 MCG/ACT SUSPENSION 1 SPRAY IN EACH NOSTRIL NASALLY ONCE A DAY NOT-TAKING CETIRIZINE HCL 10 MG TABLET 1 TABLET ORALLY ONCE A DAY NOT-TAKING MAY USE CBD OIL BEFORE BEDTIME NEEDED NOT-TAKING VENLAFAXINE HCL ER 75 MG CAPSULE EXTENDED RELEASE 24 HOUR 1 CAPSULE WITH FOOD ORALLY BID NOT-TAKING TOPAMAX 100 MG TABLET 1 TABLET ORALLY AT NIGHT, NOTES: TAKES 1 TABLET AT NIGHT NOT-TAKING OMEPRAZOLE 40 MG CAPSULE DELAYED RELEASE 1 TABLET DAILY NOT-TAKING SINGULAIR 10 MG TABLET 1 TABLET IN THE EVENING ORALLY ONCE A DAY NOT-TAKING METHOCARBAMOL 750 MG TABLET 1 TABLET ORALLY EVERY 6 HRS NOT-TAKING CYMBALTA 30 MG CAPSULE DELAYED RELEASE PARTICLES 2 CAPSULE ORALLY DAILY NOT-TAKING TIZANIDINE HCL 2 MG TABLET 1 TABLET NEEDED ORALLY THREE TIMES A DAY NOT-TAKING BUSPIRONE HCL 5 MG TABLET 1 TABLET ORALLY AT NIGHT MEDICATION LIST REVIEWED AND RECONCILED WITH THE PATIENT PAST MEDICAL HISTORY GERD HYPOTHYROID MORBID OBESITY BACK PAIN FIBROMYALGIA W/ POTS BENIGN JOINT HYPERMOBILITY SYNDROME ALLERGIES AMOXICILLIN: HIVES - ALLERGY CODEINE PHOSPHATE: NAUSEA/VOMITING - SIDE EFFECTS CLONAZEPAM: HIVES - SIDE EFFECTS AMITRIPTYLINE HCL: NAUSEA/VOMITING - SIDE EFFECTS BUPROPION HCL: NAUSEA/VOMITING - SIDE EFFECTS SURGICAL HISTORY DENIES PAST SURGICAL HISTORY FAMILY HISTORY FATHER: ALIVE 51 YRS MOTHER: ALIVE 50 YRS PATERNAL GRAND FATHER: COLON CANCER, DIAGNOSED WITH OTHER MALIGNANT NEOPLASM OF UNSPECIFIED SITE SOCIAL HISTORY GENERAL: TOBACCO USE ARE YOU A:NONSMOKER HIV / HEP-C SCREENING HIV TEST OFFERED TO PATIENT:YES DATE OFFERED:07/02/2018 TEST ACCEPTED:NO REASON:PATIENT DECLINED BROCHURE PROVIDED TO PATIENTNO OTHERS AT HOME: SPOUSE, CHILDREN. DIET: CARBOHYDRATE CONTROLLED. LANGUAGE LANGUAGES SPOKEN:CENTRAL [place] BMI CARE GOAL FOLLOW-UP ABOVE NORMAL BMI FOLLOW-UPDIETARY NEEDS EDUCATION, WEIGHT MONITORING RECREATIONAL DRUG USE DRUG USE?NO EXERCISE: GOES TO PHYSICAL THERAPY RECUMBANT BIKE, WALKS 1/2 MILE 3 TIMES A WEEK. LEARNING BARRIERS / SPECIAL NEEDS CHANGE FROM LAST VISIT?NO BARRIERS TO LEARNING?NO HEARING IMPAIRED?NO VISION IMPAIRED?NO COGNITIVELY IMPAIRED?NO READINESS TO LEARN?YES LEARNING PREFERENCES?NO LEARNING CAPABILITIES PRESENT?YES EMOTIONAL BARRIERS?NO SPECIAL DEVICES?NO PAIN CLINIC PFS, CLERGY, PUBLIC HEALTH REFERRALS PFS REFERRAL NEEDED?NO CLERGY REFERRAL NEEDED?NO PUBLIC HEALTH REFERRAL NEEDED?NO WAS THE PROVIDER NOTIFIED OF ANY PERTINENT INFO?YES HAS THE PATIENT BEEN EDUCATED REGARDING HIS/HER PLAN OF CARE?YES HAS THE PATIENT BEEN EDUCATED REGARDING PAIN, THE RISK FOR PAIN, THE IMPORTANCE OF EFFECTIVE PAIN MANAGEMENT, AND THE PAIN ASSESSMENT PROCESS?YES LATEX QUESTIONNAIRE LATEX ALLERGY : HAVE YOU EVER DEVELOPED ANY TYPE OF REACTION AFTER HANDLING LATEX PRODUCTS SUCH RUBBER GLOVES, CONDOMS, DIAPHRAGMS, BALLOONS, SOCKS, OR UNDERWEAR?NO LATEX ALLERGY : HAVE YOU EVER DEVELOPED ANY TYPE OF REACTION DURING OR AFTER DENTAL APPOINTMENT, VAGINAL/RECTAL EXAMINATION, SURGICAL PROCEDURE, OR ANY OTHER EXPOSURE?NO LATEX RISK : HAVE YOU EVER HAD ANY DIFFICULTY BREATHING OR HIVES AFTER EATING OR HANDLING ANY FRUITS, OR VEGETABLES; SUCH KIWI, BANANAS, STONE FRUITS, OR CHESTNUTSNO LATEX RISK : DO YOU HAVE A PREVIOUS PERSONAL HISTORY OF MORE THAN NINE SURGERIES, SPINA BIFIDA, OR REPEATED CATHERIZATIONS? NO LATEX RISK : ARE YOU FREQUENTLY EXPOSED TO LATEX PRODUCTS IN YOUR OCCUPATION?NO DATE ASKED : 12/16/2018 CAFFEINE CAFFEINE USE?YES HOW OFTEN AND HOW MUCH? 2 CUPS PER DAY ADVANCE DIRECTIVE ADVANCE DIRECTIVE DISCUSSED WITH PATIENT:YES PATIENT HAS NO ADVANCE DIRECTIVES AND DECLINES INFORMATION ON HCP AT THIS TIME. JEWISH JEWISH NO TENRIISM BELIEFS THAT WOULD IMPACT HEALTH CARE. MARITAL STATUS: . OCCUPATION: HOMEMAKER. SEXUAL HX HAD SEX IN THE LAST 12 MONTHS (VAGINAL, ORAL, OR ANAL)?YES WITHMEN ONLY USE PROTECTION?NO LMP:06/14/18 HAVE YOU EVER HAD AN STD?NO REVIEWED 02/03/18 0925 LASREVIEWED WITH PT 9 BVREVIEWED WITH PT 12/16/18 1451 BVREVIEWED WITH PT 03/17/19 1308 NLJREVIEWED WITH PATIENT 06/17/19 1432 JS. HOSPITALIZATION/MAJOR DIAGNOSTIC PROCEDURE DENIES PAST HOSPITALIZATION REVIEW OF SYSTEMS REVIEWED BY: PROVIDER: TYREE SMITH-C . CONSTITUTIONAL: ANY CHANGE IN YOUR MEDICAL CONDITION? YES, DIAGNOSED WITH FIBROMYALGIA W/ POTS AND BENIGN JOINT HYPERMOBILITY SYNDROME . CHILLS NO . FEVER NO . INFECTION: DO YOU HAVE NEW INFECTIONS? NO . DO YOU HAVE HISTORY OF MRSA? NO . MUSCULOSKELETAL: ANY NEW PATTERNS OF PAIN OR NUMBNESS? NO . GASTROENTEROLOGY: ANY NEW CHANGE IN BOWEL CONTROL? NO . GENITOURINARY: ANY NEW CHANGE IN BLADDER CONTROL? NO . IS THERE A CHANCE YOU COULD BE ? NO . HEMATOLOGY/LYMPH: DO YOU TAKE ANY BLOOD THINNERS? (FOR EXAMPLE- COUMADIN, PLAVIX, AGGRENOX, PLATEL, PRADAXA, OR XARELTO) NO . WHEN WAS YOUR LAST DOSE? DATE: TIME: . NEUROLOGY: HAVE YOU FALLEN IN THE PAST 12 MONTHS? NO . ANY NEW EXTREMITY NUMBNESS OR WEAKNESS? NO . CARDIOLOGY: DO YOU HAVE A PACEMAKER OR DEFIBRILLATOR? NO . RESPIRATORY: HAVE YOU BEEN SICK IN THE PAST WEEK? NO . FEVER NO . FLU LIKE SYMPTOMS? NO . COUGH NO . INTEGUMENTARY: DO YOU HAVE ANY RASHES OR OPEN SORES? NO . ALLERGIC/IMMUNO: ARE YOU ALLERGIC TO IV DYE? NO . ANY NEW ALLERGIES? NO . PSYCHIATRIC: DO YOU HAVE THOUGHTS OF HURTING YOURSELF OR SOMEONE ELSE? NO . ARE YOU ABUSED, NEGLECTED, OR IN AN UNSAFE ENVIRONMENT? NO . ENDOCRINOLOGY: ARE YOU DIABETIC? NO . OTHER: DO YOU NEED ANY PRESCRIPTIONS? NO . IF YES, PLEASE LIST: ____ . ANY NEW PROBLEMS WITH YOUR MEDICATIONS? NO . WHEN DID YOU LAST EAT? ____ . WHEN DID YOU LAST DRINK? ____ . WHAT DID YOU LAST DRINK? ____ . NAME OF PERSON DRIVING YOU HOME? ____ . DO YOU HAVE ANY OTHER QUESTIONS OR CONCERNS NO . VITAL SIGNS WT 278.0 LBS, HT 68 IN, BMI 42.27 INDEX, BP 128/75 MM HG, HR 85 /MIN, RR 18 /MIN, TEMP 97.6 F, OXYGEN SAT % 100%, SAFE IN ENV? (Y/N) YES, NA INITIALS AW 1427, REVIEWED BY: ALEKSEY. EXAMINATION GENERAL EXAMINATION: GENERALNO ACUTE DISTRESS, WELL NOURISHED AND HYDRATED. PSYCHAPPROPRIATE MOOD AND AFFECT . LUNGS:CLEAR TO AUSCULTATION BILATERALLY, NO WHEEZES, RHONCHI, RALES. HEART:NO MURMURS, REGULAR RATE AND RHYTHM. ASSESSMENTS LUMBAR DISC DISPLACEMENT WITHOUT MYELOPATHY - M51.26 (PRIMARY) TREATMENT LUMBAR DISC DISPLACEMENT WITHOUT MYELOPATHY CLINICAL NOTES: 33-YEAR-OLD FEMALE IN FOR CHRONIC PAIN FOLLOW-UP. GIVEN PRESENTING SYMPTOMS AND RESULTS OF PHYSICAL EXAMINATION RECOMMENDED FOLLOW-UP IN 3 MONTHS. PATIENT HAS EXPRESSED UNDERSTANDING OF AND WAS IN AGREEMENT WITH TREATMENT PLAN. GIVEN TIME TO ASK QUESTIONS AND EXPRESS CONCERNS. PROCEDURE CODES FA211 ESTABILISHED PATIENT [facility] FAC[facility] CHARGE DISPOSITION & COMMUNICATION FOLLOW UP 3 MONTHS (REASON: CHRONIC PAIN) ELECTRONICALLY SIGNED BY SARAH ADAMS ON 06/18/2019 AT 09:06 AM EDT DISCLAIMER : THIS IS A VISIT SUMMARY EXTRACTED FROM THE [employer] CHART. IT IS NOT A COPY OF THE [employer] PROGRESS NOTE. ADOLFO
== END ==
LOC: M PAIN 14:15
PROVIDERS: ATTEND Family Medicine
DX: M51.26 Other intervertebral disc displacement, lumbar region (principal); G89.29 Other chronic pain; E03.9 Hypothyroidism, unspecified; M79.7 Fibromyalgia; Z88.1 Allergy status to other antibiotic agents; Z88.5 Allergy status to narcotic agent; Z88.8 Allergy status to other drugs, medicaments and biological substances; E66.01 Morbid (severe) obesity due to excess calories; Z68.41 Body mass index [BMI] 40.0-44.9, adult; Z79.899 Other long term (current) drug therapy

== ENCOUNTER → 2023-09-13 | Outpatient (CLI) | payer OTHER ==
[~2023-09-13] MED LIST changes: +GABA-284 PO; -GABA-845 PO; +OMEP40CA4 PO; -OMEP40CA97 PO
[2023-09-13 16:22] LABS: HCG, SERUM QUANTITATIVE < 2.6 MIU/ML (<4.2)
[2023-09-13 16:56] LABS: HIV 1&2 SCREEN NEGATIVE (NEGATIVE)
[2023-09-13 17:04] LABS: HEPATITIS C VIRUS ABY INDEX < 0.02 INDEX (<0.8)
== END ==
LOC: M PLALAB 13:48
PROVIDERS: ATTEND Obstetrics & Gynecology
DX: N91.2 Amenorrhea, unspecified (principal); Z11.3 Encounter for screening for infections with a predominantly sexual mode of transmission

== ENCOUNTER → 2023-10-15 | Outpatient (REF) | payer OTHER | LOC: M SFHCWAGY 17:48 | PROVIDERS: ATTEND Nurse Practitioner Family | DX: Z12.4 Encounter for screening for malignant neoplasm of cervix (principal); R87.610 Atypical squamous cells of undetermined significance on cytologic smear of cervix (ASC-US) ==

== ENCOUNTER → 2023-12-25 | Outpatient (REF) | payer OTHER | LOC: M SFHCWAGY 12:45 | PROVIDERS: ATTEND Nurse Practitioner Family | DX: Z12.4 Encounter for screening for malignant neoplasm of cervix (principal); R87.615 Unsatisfactory cytologic smear of cervix; R35.0 Frequency of micturition; R87.612 Low grade squamous intraepithelial lesion on cytologic smear of cervix (LGSIL) ==

== ENCOUNTER 2024-02-10 10:00 | Outpatient (RCR) | payer OTHER | END 2024-02-16 | LOC: M PT 10:00 | PROVIDERS: ATTEND Physician Assistant | DX: I89.0 Lymphedema, not elsewhere classified (principal) ==

== ENCOUNTER → 2025-06-22 | Outpatient (CLI) | payer OTHER | LOC: M PLALAB 09:57 | PROVIDERS: ATTEND Advanced Practice Midwife | DX: O36.80X1 Pregnancy with inconclusive fetal viability, fetus 1 (principal); Z87.59 Personal history of other complications of pregnancy, childbirth and the puerperium; Z3A.00 Weeks of gestation of pregnancy not specified ==